=== PATIENT | male | born 1985 ===

== ENCOUNTER → 2018-11-12 | Outpatient (REF) | payer OTHER ==
[2018-11-12 11:14] LABS: SEMEN APPEARANCE OPAQUE (OPAQUE); SEMEN VISCOSITY VISCOUS (LIQUID); SEMEN VOLUME 3.2 ml (4.0-5.0)
[2018-11-12 11:15] LABS: SPERM CONCENTRATION 49.6 M/ml (>=15.0); WBC CONCENTRATION <=1 M/ml (<=1 M/ml)
== END ==
LOC: M LAB REF 10:29
PROVIDERS: ATTEND Student in an Organized Health Care Education/Training Program
DX: N46.9 Male infertility, unspecified (principal)